=== PATIENT | female | born 1965 | race American Indian/Alaskan Native ===

== ENCOUNTER 2018-12-21 16:02 | Emergency (ER) | payer OTHER ==
[2018-12-21 16:04] VITALS: BMI 39.1
[2018-12-21 16:06] VITALS: TEMP 97.4
[2018-12-21] MEDS ORDERED: Magnesium Sulfate 2 GM in Sodium Chloride 0.9% 100 ML IVPB ONE (16:42)
[2018-12-21] MEDS ORDERED: Magnesium Sulfate 2 GM in 50 ml Water IVPB ONE (17:00)
--- NOTE | 2018-12-21 17:02 | ED PDOC ---
Arrival/HPI - General Chief Complaint: Medical Clearance Time Seen by Provider: 12/21/18 16:06 Historian: Patient - History of Present Illness Narrative History of Present Illness (Text): 12/21/18 16:51 A 53 year old female, whose past medical history includes asthma/ COPD, presents to the emergency department with a complaint of shortness of breath and right hand pain. Patient reports several month duration shortness of breath. She reports 31 years of smoking history. Patient used to smoke one and a half packs per days and currently smokes half a pack a day. The patient states that she has maintenance medications for COPD but does not take them. The patient also complains of right hand pain for several months. She denies fevers, chills, headache, dizziness, chest pain, dyspnea on exertion, cough, abdominal pain, nausea, vomiting, diarrhea, back pain, neck pain, urinary/bowel changes, or any other complaint. Time/Duration: Other (Several Months) Symptom Onset: Sudden Symptom Course: Unchanged Activities at Onset: Rest, Light Context: Home Past Medical History - Provider Review Nursing Documentation Reviewed: Yes - Cardiac Hx Hypertension: Yes - Pulmonary Hx Asthma: Yes Hx Chronic Obstructive Pulmonary Disease (COPD): Yes - Psychiatric Hx Substance Use: No - Anesthesia Hx Anesthesia: No Family/Social History - Physician Review Nursing Documentation Reviewed: Yes Family/Social History: No Known Family HX Smoking Status: Heavy Smoker > 10 Cigarettes Daily Hx Alcohol Use: No Hx Substance Use: No Allergies/Home Meds Allergies/Adverse Reactions: Allergies No Known Allergies Allergy (Verified 12/21/18 16:04) Review of Systems - Physician Review All systems were reviewed & negative as marked: Yes - Review of Systems Constitutional: absent: Fevers Respiratory: SOB. absent: Cough Cardiovascular: absent: Chest Pain, HENRIQUEZ Gastrointestinal: absent: Abdominal Pain, Stool Changes, Diarrhea, Nausea, Vomiting Genitourinary Female: absent: Urine Output Changes Musculoskeletal: Other (right hand pain). absent: Back Pain, Neck Pain Physical Exam Vital Signs Reviewed: Yes Vital Signs Temp Pulse Resp BP Pulse Ox 12/21/18 16:05 97.4 F L 73 20 152/98 H 99 Temperature: Hypothermic Blood Pressure: Hypertensive Pulse: Regular Respiratory Rate: Normal Appearance: Positive for: Well-Appearing, Non-Toxic, Comfortable Pain Distress: None Mental Status: Positive for: Alert and Oriented X 3 - Systems Exam Head: Present: Atraumatic, Normocephalic Pupils: Present: PERRL Extroacular Muscles: Present: EOMI Conjunctiva: Present: Normal Mouth: Present: Moist Mucous Membranes Neck: Present: Normal Range of Motion Respiratory/Chest: Present: Good Air Exchange, Wheezes (Bilateral expiratory wheeze with food air entry. ). No: Respiratory Distress, Accessory Muscle Use Cardiovascular: Present: Regular Rate and Rhythm, Normal S1, S2. No: Murmurs Abdomen: No: Tenderness, Distention, Peritoneal Signs Back: Present: Normal Inspection Upper Extremity: Present: Swelling (soft, movable, swelling in the dorsal aspect of the hand.). No: Cyanosis, Edema, Tenderness Lower Extremity: Present: Normal Inspection. No: Edema Neurological: Present: GCS=15, CN II-XII Intact, Speech Normal Skin: Present: Warm, Dry, Normal Color. No: Rashes Psychiatric: Present: Alert, Oriented x 3, Normal Insight, Normal Concentration Medical Decision Making ED Course and Treatment: 12/21/18 17:05 Impression: A 53 year old female presents to the emergency department with a complaint of several month duration shortness of breath and right hand pain. Plan: -- EKG -- Chest X-ray -- Right Hand X- Ray -- Duoneb, Magnesium Sulfate, Medrol -- Reassess and disposition Prior Visits: Notes and results from previous visits were reviewed. Progress Notes: EKG: Ordered, reviewed, and independently interpreted the EKG. Rate : 73 BPM Rhythm : NSR Interpretation : Normal axis. Normal intervals. PROCEDURE: Right Hand Radiographs Signed By : Rosas Hurtado MD Signed Date : 12/21/20181753 IMPRESSION: No demonstrated fracture or dislocation. Chest X-ray Signed By : Rosas Hurtado MD Signed Date : 12/21/2018 175 IMPRESSION: No active disease. 12/21/18 18:18 On re-evaluation, patient feels better and is in no acute distress. Lungs are clear. I have discussed the results and plan with the patient, who expresses understanding. Patient in agreement with plan to be discharged home. Patient is stable for discharge. Patient was instructed to follow up with physician or return if symptoms worsen or new concerning symptoms arise. - Lab Interpretations I have reviewed the lab results: Yes - EKG Interpretation Interpreted by ED Physician: Yes Type: 12 lead EKG - Medication Orders Current Medication Orders: Albuterol/Ipratropium (Duoneb 3 Mg/0.5 Mg (3 Ml) Ud) 3 ml IH Q15M IVORY Stop: 12/21/18 17:16 Magnesium Sulfate (Magnesium Sulfate 2 Gm/50 Ml Water) 2 gm in 50 mls @ 50 mls/hr IVPB ONCE ONE Stop: 12/21/18 17:59 Discontinued Medications Methylprednisolone (Solu-Medrol) 125 mg IVP STAT STA Stop: 12/21/18 16:43 - Scribe Statement The provider has reviewed the documentation as recorded by the Stacyibe Chantal Nolasco Provider Scribe Attestation: All medical record entries made by the Scribe were at my direction and personally dictated by me. I have reviewed the chart and agree that the record accurately reflects my personal performance of the history, physical exam, medical decision making, and the department course for this patient. I have also personally directed, reviewed, and agree with the discharge instructions and disposition. Disposition/Present on Arrival - Present on Arrival Any Indicators Present on Arrival: No History of DVT/PE: No History of Uncontrolled Diabetes: No Urinary Catheter: No History of Decub. Ulcer: No History Surgical Site Infection Following: None - Disposition Have Diagnosis and Disposition been Completed?: Yes Diagnosis: Asthma exacerbation Disposition: HOME/ ROUTINE Disposition Time: 17:55 Condition: IMPROVED Discharge Instructions (ExitCare): Quitting Smoking for Older Adults, Asthma, Adult (DC) Additional Instructions: JESSIKA GARCIA, thank you for letting us take care of you today. The emergency medical care you received today was directed at your acute symptoms. If you were prescribed any medication, please fill it and take as directed. It may take several days for your symptoms to resolve. Return to the Emergency Department if your symptoms worsen, do not improve, or if you have any other problems. Please contact your doctor or call one of the physicians/clinics you have been referred to that are listed on the Patient Visit Information form that is included in your discharge packet. Bring any paperwork you were given at discharge with you along with any medications you are taking to your follow up visit. Our treatment cannot replace ongoing medical care by a primary care provider outside of the emergency department. Thank you for allowing the [facility] [employer] team to be part of your care today. Follow up with Dr. Garcia next week for re-evaluation and further management. Prescriptions: Fluticasone Propionate [Flovent Hfa] 2 puff IH BID #1 unit predniSONE [Prednisone] 40 mg PO DAILY #10 tab Referrals: Teresita Garcia MD [Family Provider] - Follow up with primary Forms: [email or web address] (Kyrgyz)
[2018-12-21] MEDS: Albuterol-Ipratrop 3 mg / 0.5 (3 ml) UD IH SCH ×3 (17:07→17:47)
[2018-12-21 17:19] LABS: HEMOGLOBIN 12.4 g/dL (12.0-16.0); MEAN CELL VOLUME 80.7 fl (80.0-105.0); RBC 4.82 10^6/uL (3.5-6.1); WHITE BLOOD COUNT 10.9 10^3/uL (4.5-11.0)
[2018-12-21 17:20] LABS: BASO # 0.03 K/mm3 (0.0-2.0); BASO % 0.3 % (0.0-3.0); EOS # 0.2 (0.0-0.7); EOS % 1.7 % (1.5-5.0); LYMPH # 3.4 (1.2-3.4); LYMPH % 31.3 % (22.0-35.0); MEAN CORPUSCULAR HEMOGLOBIN 25.7 pg (25.0-35.0); MEAN CORPUSCULAR HGB CONC 31.9 g/dl (31.0-37.0); MEAN PLATELET VOLUME 11.9 fl (7.0-11.0); MONO # 0.6 (0.1-0.6); MONO % 5.1 % (1.0-6.0); RED CELL DISTRIBUTION WIDTH 15.6 % (11.5-14.5)
[2018-12-21 17:26] LABS: ALB/GLOB RATIO 1.1 (1.1-1.8); ALBUMIN 4.3 g/dL (3.0-4.8); ALT/SGPT 25 U/L (7-56); AST/SGOT 18 U/L (14-36); BLOOD UREA NITROGEN 7 mg/dL (7-21); CALCIUM 9.2 mg/dL (8.4-10.5); GFR NON-AFRICAN AMERICAN > 60
[2018-12-21 17:38] LABS: B-TYPE NATRIURETIC PEPTIDE 131 pg/mL (0-450); TROPONIN I < 0.01 ng/mL
--- NOTE | 2018-12-21 17:57 | RAD ---
Date of service: 12/21/2018 HISTORY: cough r/o infiltrate COMPARISON: No prior. TECHNIQUE: Chest PA and lateral FINDINGS: LUNGS: No active pulmonary disease. PLEURA: No significant pleural effusion identified. No pneumothorax apparent. CARDIOVASCULAR: Aortic atherosclerotic calcifications. Cardiomediastinal silhouette enlarged. OSSEOUS STRUCTURES: Final degenerative changes. VISUALIZED UPPER ABDOMEN: Normal. OTHER FINDINGS: None. IMPRESSION: No active disease.
--- NOTE | 2018-12-21 17:58 | RAD ---
PROCEDURE: Right Hand Radiographs. HISTORY: hand pain r/o fx COMPARISON: None. FINDINGS: BONES: No acute fracture. JOINTS: Unremarkable. SOFT TISSUES: Normal. OTHER FINDINGS: None. IMPRESSION: No demonstrated fracture or dislocation.
[2018-12-21 18:30] VITALS: BP 145/95; PULSE 66; RESP 18; O2SAT 96
--- NOTE | 2018-12-21 23:12 | CARD ---
APPROVED REPORT Date of service: 12/21/2018 EKG Measurement Heart [id number] <Conclusion> Normal sinus rhythm Minor NDSTT abnormalities [facility] ECG
== END 2018-12-21 18:38 | disposition home or self-care (01) ==
LOC: ED 16:02 → MERGE 16:02 → ED 18:38
DX: J45.901 Unspecified asthma with (acute) exacerbation (principal); I10 Essential (primary) hypertension; F17.210 Nicotine dependence, cigarettes, uncomplicated
CPT/HCPCS: 71046; 73130; 80053; 82550; 83615; 83735; 83880; 84484; 85025; 93005; 96365; 96375; 99283; J2930